=== PATIENT | male | born 1995 | race Caucasian/White ===

== ENCOUNTER 2023-07-03 20:21 | Emergency (ER) | payer BC ==
[~2023-07-03] VITALS: Ht 167.6 cm; Wt 56.7 kg
[2023-07-03 20:40] VITALS: BP_SYST 152; PULSE 78; RESP 20; TEMP 98.3; O2SAT 95
== END 2023-07-03 21:23 ==
LOC: SED 20:21
DX: S30.810A Abrasion of lower back and pelvis, initial encounter (principal); S60.512A Abrasion of left hand, initial encounter; S60.511A Abrasion of right hand, initial encounter; Z79.899 Other long term (current) drug therapy; X58.XXXA Exposure to other specified factors, initial encounter; Y93.89 Activity, other specified; Y92.89 Other specified places as the place of occurrence of the external cause; Y99.8 Other external cause status
CPT/HCPCS: 99283